=== PATIENT | female | born 1980 | race Caucasian/White ===

== ENCOUNTER 2016-10-03 06:02 | Day surgery (SDC) | payer OTHER ==
[2016-10-03] MEDS ORDERED: ACETAMINOPHEN 1,000 MG/100 ML 100 ML IV ONE (06:26)
[2016-10-03] MEDS ORDERED: ceFAZolin 2 GM/50 ML 50 ML IV ONE (06:26)
[2016-10-03] MEDS ORDERED: CELECOXIB 100 MG CAPSULE PO ONE (06:28)
[2016-10-03] MEDS ORDERED: LACTATED RINGERS 1,000 ML IV ONE ×5 (07:05→09:25)
[2016-10-03] MEDS ORDERED: BUPIVACAINE 0.5% PF 30 ML VIAL INFIL ONE (07:31)
[2016-10-03] MEDS ORDERED: ROCURONIUM 50 MG/5 ML VIAL IVP ONE (07:45)
[2016-10-03] MEDS ORDERED: fentaNYL 100 MCG/2 ML VIAL IVP ONE (07:45)
[2016-10-03] MEDS ORDERED: DEXAMETHASONE 4 MG/ML VIAL IVP ONE (07:45)
[2016-10-03] MEDS ORDERED: GLYCOPYRROLATE 1 MG/5 ML VIAL IVP ONE (07:45)
[2016-10-03] MEDS ORDERED: MIDAZOLAM 2 MG/2 ML VIAL IVP ONE (07:45)
[2016-10-03] MEDS ORDERED: LIDOCAINE-PF 2% 10 ML AMP SUBQ ONE (07:45)
[2016-10-03] MEDS ORDERED: ACETAMINOPHEN 1,000 MG/100 ML VIAL IV ONE (07:45)
[2016-10-03] MEDS ORDERED: SUCCINYLCHOLINE 200 MG/10 ML VIAL IVP ONE (07:45)
[2016-10-03] MEDS ORDERED: PROPOFOL 200 MG/20 ML VIAL IVP ONE (07:45)
[2016-10-03] MEDS: HYDROmorphone 1 MG/ML SYRINGE ONE ×4 (10:20→10:45)
[2016-10-03] MEDS ORDERED: HYDROcod/ACETAM 5/325 MG TABLET ONE (10:53)
== END 2016-10-03 06:03 | disposition home or self-care (01) ==
PROC: 0MQQ0ZZ Repair Right Ankle Bursa and Ligament, Open Approach (ICD-10-PCS; 2016-10-03)
PROC: 0LQS0ZZ Repair Right Ankle Tendon, Open Approach (ICD-10-PCS; principal; 2016-10-03 07:30)
DX: S96.811A Strain of other specified muscles and tendons at ankle and foot level, right foot, initial encounter (principal); M25.371 Other instability, right ankle; E89.0 Postprocedural hypothyroidism; F18.20 Inhalant dependence, uncomplicated; Z85.850 Personal history of malignant neoplasm of thyroid
CPT/HCPCS: 20999; 27696; 81025; A9270; J0131; J0690; J1170; J7120

== ENCOUNTER 2018-06-15 11:41 | Outpatient (CLI) | payer OTHER ==
[2018-06-15 12:56] LABS: BASOPHILS # (AUTO) 0.1 10^3/uL (0.0-0.1); BASOPHILS % (AUTO) 1.2 %; EOSINOPHILS # (AUTO) 0.1 10^3/uL (0.0-0.7); EOSINOPHILS % (AUTO) 2.3 %; HGB - HEMOGLOBIN 14.3 g/dL (12.0-16.0); LYMPHOCYTES # (AUTO) 1.3 10^3/uL (1.5-3.5); LYMPHOCYTES % (AUTO) 27.8 %; MEAN CORPUSCULAR HEMOGLOBIN 32.3 pg (27.0-31.0); MEAN CORPUSCULAR HGB CONC 35.8 g/dL (32.0-36.0); MEAN CORPUSCULAR VOLUME 90.3 fL (81.0-99.0); MEAN PLATELET VOLUME 7.7 fL (7.9-10.8); MONOCYTES # (AUTO) 0.4 10^3/uL (0.0-1.0); MONOCYTES % (AUTO) 8.6 %; NEUTROPHILS # (AUTO) 2.8 10^3/uL (1.5-6.6); NEUTROPHILS % (AUTO) 60.1 %; PLT - PLATELET COUNT 276 10^3/uL (130-450); RED BLOOD COUNT 4.42 10^6/uL (4.20-5.40); RED CELL DISTRIBUTION WIDTH 13.2 % (12.0-15.0); WHITE BLOOD COUNT 4.7 x10^3/uL (4.8-10.8)
[2018-06-15 13:02] LABS: ALBUMIN/GLOBULIN RATIO 1.4 (1.0-2.2); BILIRUBIN,TOTAL 0.4 mg/dL (0.2-1.0); CALCIUM 8.8 mg/dL (8.5-10.3); CREATININE 0.6 mg/dL (0.4-1.0); TOTAL PROTEIN 6.9 g/dL (6.7-8.2)
== END 2018-06-15 11:42 | disposition home or self-care (01) ==
LOC: LAB 11:41
PROVIDERS: ATTEND Internal Medicine Gastroenterology
DX: M62.81 Muscle weakness (generalized) (principal); F32.9 Major depressive disorder, single episode, unspecified; R53.82 Chronic fatigue, unspecified; Z85.850 Personal history of malignant neoplasm of thyroid; M79.7 Fibromyalgia
CPT/HCPCS: 36415; 80053; 85025

== ENCOUNTER 2018-06-21 07:44 | Day surgery (SDC) | payer OTHER ==
[2018-06-21] MEDS ORDERED: ceFAZolin 2 GM/50 ML 2 GM/50 ML BAG IV ONE (07:56)
[2018-06-21] MEDS ORDERED: LACTATED RINGERS 1,000 ML IV ONE ×2 (08:29→10:00)
--- NOTE | 2018-06-21 08:42 | ANESTHESIA ---
Pre-Anesthesia VS, & Labs - Diagnosis progressive muscle weakness - Procedure open muscle biopsy left thigh Vital Signs: Temp Pulse Resp BP Pulse Ox 36.6 C 79 16 135/85 H 99 06/21/18 08:07 06/21/18 08:07 06/21/18 08:07 06/21/18 08:07 06/21/18 08:07 Height 5 ft 9 in Weight (kg) 119 kg - NPO >8 hours - Is Patient ?: Waiver signed Home Medications and Allergies Home Medications: Ambulatory Orders Cyclobenzaprine [Flexeril] 10 mg PO DAILY 06/21/18 Magnesium Oxide [Magnesium] 400 mg PO BID 06/21/18 Fluticasone [Flonase] 1 sprays ABHIJEET DAILY PRN 04/19/15 Levothyroxine [Synthroid] 175 mcg PO QDAC 04/19/15 Loratadine [Claritin] 10 mg PO QPM PRN 04/19/15 Pregabalin [Lyrica] 100 mg PO BID 04/19/15 Cholecalciferol (Vitamin D3) [Vitamin D3] 10,000 unit PO DAILY 09/09/16 Sertraline [Zoloft] 50 mg PO DAILY 09/09/16 Cyclobenzaprine [Flexeril] 10 mg PO DAILY 06/21/18 Magnesium Oxide [Magnesium] 400 mg PO BID 06/21/18 Allergies/Adverse Reactions: Allergies Allergy/AdvReac Type Severity Reaction Status Date / Time No Known Drug Allergies Allergy Verified 06/21/18 08:26 Anes History & Medical History - Anesthetic History Anesthesia Complications: reports: No previous complications - Medical History Cardiovascular: reports: None, Other (chest pain workups negative per patient, told it was anxiety) Pulmonary: reports: None Gastrointestinal: reports: None Urinary: reports: None Musculoskeletal: reports: Fibromyalgia, Other (myalgia) Endocrine/Autoimmune: reports: None Skin: reports: None Smoking Status: Never smoker - Surgical History Eyes Ears Nose Throat (EENT): Tonsil/Adenoidectomy, Other (total thyroidectomy) Orthopedic: Other (ankle surgery, hand surgery) Exam General: Alert Dental: WNL Mouth Opening: Greater than 4 Fingerbreadths Neck Mobility: Normal Mallampati classification: II Thyromental Distance: greater than 6 cm Respiratory: Lungs clear Cardiovascular: Regular rate Neurological: Normal gait Mental/Cognitive Status: Alert/Oriented X3 Plan Anesthesia Type: MAC Consent for Procedure(s) Verified and Reviewed: Yes Code Status: Attempt Resuscitation ASA classification: 2-Mild systemic disease Is this case an emergency?: No
[2018-06-21] MEDS ORDERED: BUPIVACAINE 0.5% PF 30 ML VIAL ONE (09:37)
[2018-06-21] MEDS ORDERED: LIDOCAINE 1%-EPI 1:100000 30 ML MDV ONE ×2 (09:38→09:47)
[2018-06-21] MEDS ORDERED: KETAMINE 500 MG/10 ML VIAL IVP ONE (09:45)
[2018-06-21] MEDS ORDERED: PROPOFOL 200 MG/20 ML VIAL IVP ONE (09:45)
[2018-06-21] MEDS ORDERED: GLYCOPYRROLATE 1 MG/5 ML VIAL IVP ONE (09:45)
[2018-06-21] MEDS ORDERED: MIDAZOLAM 2 MG/2 ML VIAL IVP ONE (09:45)
[2018-06-21] MEDS ORDERED: BUPIVACAINE 0.5% PF 30 ML VIAL INFIL ONE (09:47)
[2018-06-21] MEDS ORDERED: LIDOCAINE MPF 1%-EPI 1:200000 10 ML VIAL IJ ONE (09:47)
[2018-06-21] MEDS ORDERED: oxyCODONE 5 MG TABLET PO PRN (10:22)
[2018-06-21] MEDS ORDERED: ONDANSETRON 4 MG/2 ML VIAL IVP PRN (10:22)
[2018-06-21 10:49] VITALS: BP 139/72
--- NOTE | 2018-06-21 11:27 | OPERATIVE REPORT ---
DATE OF SERVICE: 06/21/2018 Physician: Cas Yeh MD PREOPERATIVE DIAGNOSIS: Progressive muscle weakness. POSTOPERATIVE DIAGNOSIS: Progressive muscle weakness. PROCEDURE PERFORMED: Open biopsy of left quadriceps muscle. ANESTHESIA: Local plus monitored anesthesia care by Casey Goff CRNA. SURGEON: Cas Yeh MD. ESTIMATED BLOOD LOSS: Minimal. COMPLICATIONS: None. DRAINS: None. FINDINGS: A strip of quadriceps muscle measuring 3 cm in length x 0.5 cm in width and depth was exci sed and sent for pathologic evaluation. The muscle grossly had a normal appearance. INDICATIONS FOR PROCEDURE: Amadou Garrett is a 38-year-old woman with a history of progressive muscle weakness. Extensive evaluation by multiple specialists has been unsuccessful in identifying a defin itive diagnosis, and she was advised to undergo an open muscle biopsy for further evaluation. TECHNIQUE: After informed consent and preoperative preparation, included administration of 2 grams o f cefazolin intravenously within an hour of the incision. She was taken to the operating room, where she was placed in supine position and sedated and monitored. Her left anterior thigh was prepped wi th iodoform solution and a field block was instituted, using a 50:50 combination of 1% lidocaine with epinephrine and 0.5% Marcaine plain; a total of 20 mL of the mixture was used. Her left thigh was t hen prepared with ChloraPrep solution and draped in the usual sterile fashion. A longitudinal incisi on, approximately 5 cm in length, was made over the mid anterior quadriceps muscle and carried down t hrough the subcutaneous tissues, until the investing fascia was identified and was incised, also long itudinally, exposing the quadriceps muscle. Using Metzenbaum scissors, a section of muscle was excis ed in it that measured, in an noncontracted state, 4 cm in length x 1 cm in width and depth. The tis damian was placed in a saline-dampened sponge and then in a sterile specimen container, and [facility] was notified for immediate pickup. Hemostasis was achieved with electrocautery, following wh ich wound closure was accomplished in layers, using continuous 2-0 Vicryl to reapproximate the deep i nvesting fascia, followed by continuous 3-0 Vicryl for Kaylin's fascia, followed by 4-0 Monocryl subc uticular skin closure and Dermabond. An Mitchel bandage was applied. The procedure was terminated, and the patient was transferred out of the operating room in satisfactory condition. Platelet counts cor rect x2, and no drains were used. TD: 06/21/2018 10:53
== END 2018-06-21 07:45 | disposition home or self-care (01) ==
LOC: SDS 07:44
PROVIDERS: ATTEND Internal Medicine Gastroenterology
PROC: 0KBR0ZX Excision of Left Upper Leg Muscle, Open Approach, Diagnostic (ICD-10-PCS; principal; 2018-06-21 09:15)
DX: M62.81 Muscle weakness (generalized) (principal); M62.552 Muscle wasting and atrophy, not elsewhere classified, left thigh; R25.1 Tremor, unspecified; M79.7 Fibromyalgia; R53.82 Chronic fatigue, unspecified; I10 Essential (primary) hypertension; E89.0 Postprocedural hypothyroidism; E66.9 Obesity, unspecified; Z85.850 Personal history of malignant neoplasm of thyroid; Z87.01 Personal history of pneumonia (recurrent); Z91.81 History of falling; Z68.38 Body mass index [BMI] 38.0-38.9, adult; Z87.891 Personal history of nicotine dependence
CPT/HCPCS: 20205; J0690; J3490; J7120

== ENCOUNTER 2018-10-14 08:51 | Outpatient (CLI) | payer OTHER ==
--- NOTE | 2018-10-14 15:06 | Nuclear Medicine Report ---
Reason: EARLY SATIETY, NAUSEA VOMITING Procedure Date: 10/14/2018 Accession Number: [id number] / [id number] Procedure: NM - Gastric Empty Small Bowel CPT Code: FULL RESULT: EXAM: GASTRIC EMPTYING STUDY EXAM DATE: 10/14/2018 02:44 PM. CLINICAL HISTORY: EARLY SATIETY, NAUSEA VOMITING. COMPARISON: None. TECHNIQUE: A standard meal was radiolabeled with 1.1 mCi Tc-99m sulfur colloid according to protocol. Following the p.o. administration of this meal, the patient underwent multiple static images over the abdomen from the anterior and posterior projections, at approximately 0, 1, 2, 3, and 4 hours following the ingestion of the meal. Region of interest analysis was employed, and percent emptied/percent remaining of the meal was calculated using both the geometric mean and decay corrections. FINDINGS: Calculations demonstrate: TIME (hours) Percent remaining. Normal values for percent remaining. 1 hour: 20.5% (30-90%) 2 hours: 12.3% (0-60%) 3 hours: 6.3% (30%) 4 hours: 1.2% (0-10%) IMPRESSION: Rapid gastric emptying. RADIA
== END 2018-10-14 08:52 | disposition home or self-care (01) ==
LOC: DI 08:51
PROVIDERS: ATTEND Internal Medicine
DX: R68.81 Early satiety (principal); R11.2 Nausea with vomiting, unspecified
CPT/HCPCS: 78265

== ENCOUNTER 2020-06-24 22:18 | Emergency (ER) | payer OTHER ==
[2020-06-24] MEDS ORDERED: SODIUM CHLORIDE 0.9% 1,000 ML IV STA (23:17)
[2020-06-24 23:36] LABS: BILIRUBIN,URINE NEGATIVE (NEGATIVE); GLUCOSE, URINE (UA) NEGATIVE (NEGATIVE); KETONES,URINE (UA) TRACE mg/dL (NEGATIVE); LEUKOCYTE ESTERASE, URINE NEGATIVE (NEGATIVE); NITRITE,URINE NEGATIVE (NEGATIVE); OCCULT BLOOD,URINE MODERATE (NEGATIVE); PH,URINE 6.5 PH (5.0-7.5); PROTEIN,URINE NEGATIVE (NEGATIVE); UROBILINOGEN,URINE 0.2 (NORMAL) E.U./dL (NORMAL)
[2020-06-24 23:41] LABS: CLARITY,URINE CLEAR (CLEAR)
[2020-06-24 23:49] LABS: BACTERIA,URINE Rare /HPF (None Seen); RBC,URINE 0-5 /HPF (0-5); SQUAMOUS EPITHELIAL CELL,UR FEW Squamous (<= Few)
[2020-06-24 23:52] LABS: BASOPHILS # (AUTO) 0.1 10^3/uL (0.0-0.1); BASOPHILS % (AUTO) 1.1 %; EOSINOPHILS # (AUTO) 0.1 10^3/uL (0.0-0.7); EOSINOPHILS % (AUTO) 1.6 %; HGB - HEMOGLOBIN 13.1 g/dL (12.0-16.0); LYMPHOCYTES # (AUTO) 2.1 10^3/uL (1.5-3.5); LYMPHOCYTES % (AUTO) 27.9 %; MEAN CORPUSCULAR HEMOGLOBIN 31.6 pg (27.0-31.0); MEAN CORPUSCULAR HGB CONC 33.7 g/dL (32.0-36.0); MEAN CORPUSCULAR VOLUME 93.7 fL (81.0-99.0); MEAN PLATELET VOLUME 9.6 fL (7.9-10.8); MONOCYTES # (AUTO) 0.7 10^3/uL (0.0-1.0); MONOCYTES % (AUTO) 9.3 %; NEUTROPHILS # (AUTO) 4.4 10^3/uL (1.5-6.6); NEUTROPHILS % (AUTO) 59.7 %; PLT - PLATELET COUNT 335 10^3/uL (130-450); RED BLOOD COUNT 4.15 10^6/uL (4.20-5.40); RED CELL DISTRIBUTION WIDTH 12.6 % (12.0-15.0); WHITE BLOOD COUNT 7.4 x10^3/uL (4.8-10.8)
[2020-06-24] MEDS ORDERED: KETOROLAC 30 MG/ML VIAL IVP STA (23:58)
[2020-06-25 00:02] LABS: ALBUMIN 4.3 g/dL (3.2-5.5); ALBUMIN/GLOBULIN RATIO 1.5 (1.0-2.2); BILIRUBIN,TOTAL 0.4 mg/dL (0.2-1.0); CALCIUM 8.7 mg/dL (8.5-10.3); CREATININE 0.8 mg/dL (0.4-1.0); TOTAL PROTEIN 7.2 g/dL (6.7-8.2)
--- NOTE | 2020-06-25 00:46 | ED Physician Documentation ---
PD HPI HEADACHE - Stated complaint Stated Complaint: HEAD ACHE - Chief complaint Chief Complaint: Neuro - History obtained from History obtained from: Patient - History of Present Illness Timing - onset: How many days ago (3) Timing - onset during: Rest Timing - duration: Days (3) Timing - details: Gradual onset, Still present Location: Back Quality: Throbbing, Aching Associated symptoms: Stiff neck, Nausea. No: Fever, Vomiting Improved by: Rest, Dark room, Quiet, Meds Worsened by: Light, Noise, Moving Contributing factors: No: Anticoagulated Similar symptoms before: Diagnosis (viral meningitis) Recently seen: Admitted - Additional information Additional information: 40 y/o female with a recent hospitalization for aseptic meningitis was discharged with HSV pending and 7 days of valacyclovir. Her HSV was negative but her [place] encephalitis virus IGG was +. She has been diagnosed with an arbovirus infection. She had about a week of being symptom free and has again developed a headache over the past 3 days. She has nausea but has not vomited. She has not been able to control the pain with ibuprofen and tylenol and has come to the hospital [facility] for treatment. Review of Systems Constitutional: reports: Fatigue. denies: Fever, Chills Eyes: reports: Photophobia. denies: Decreased vision Ears: denies: Ear pain Nose: denies: Rhinorrhea / runny nose, Congestion Throat: denies: Sore throat Cardiac: denies: Chest pain / pressure, Palpitations Respiratory: denies: Dyspnea, Cough GI: reports: Nausea. denies: Abdominal Pain, Vomiting : denies: Dysuria, Frequency PD PAST MEDICAL HISTORY - Past Medical History Past Medical History: Yes Cardiovascular: Hypertension, Other Respiratory: None Endocrine/Autoimmune: None GI: None : None HEENT: Chronic vision loss Psych: None Musculoskeletal: Fibromyalgia, Other Derm: None - Past Surgical History Past Surgical History: Yes Ortho: Other HEENT: Tonsil/Adenoidectomy, Other - Present Medications Home Medications: Ambulatory Orders Medication Instructions Recorded Confirmed Fluticasone [Flonase] 1 sprays ABHIJEET DAILY PRN 04/19/15 06/21/18 Levothyroxine [Synthroid] 175 mcg PO QDAC 04/19/15 06/21/18 Loratadine [Claritin] 10 mg PO QPM PRN 04/19/15 06/21/18 Cholecalciferol (Vitamin D3) 10,000 unit PO DAILY 09/09/16 06/21/18 [Vitamin D3] Sertraline [Zoloft] 50 mg PO DAILY 09/09/16 06/21/18 Cyclobenzaprine [Flexeril] 10 mg PO DAILY 06/21/18 06/21/18 Magnesium Oxide [Magnesium] 400 mg PO BID 06/21/18 06/21/18 ALPRAZolam [Alprazolam] 06/24/20 Hydrocodone/Acetaminophen 06/24/20 [Hydrocodone-Acetamin 5-325 mg] Lisinopril [Zestril] 06/24/20 Metoprolol Succinate 06/24/20 - Allergies Allergies/Adverse Reactions: Allergies Allergy/AdvReac Type Severity Reaction Status Date / Time No Known Drug Allergies Allergy Verified 06/24/20 22:22 - Social History Does the pt smoke?: No Smoking Status: Never smoker Does the pt drink ETOH?: Yes ETOH Use: Liquor Does the pt have substance abuse?: No - Immunizations Immunizations are current?: Yes PD ED PE NORMAL - Vitals Vital signs reviewed: Yes (hypetensive ) - General General: Alert and oriented X 3, Well developed/nourished, Other (40 y/o female ) - HEENT HEENT: Atraumatic, PERRL, EOMI, Other (left TM has distorted architecture with mild inflamation (ruptured 2 years ago)) - Neck Neck: Supple, no meningeal sign, No bony TTP, No JVD - Cardiac Cardiac: RRR, No murmur - Respiratory Respiratory: No respiratory distress, Clear bilaterally - Abdomen Abdomen: Soft, Non tender - Back Back: No CVA TTP, No spinal TTP - Derm Derm: Normal color, Warm and dry, No rash - Extremities Extremities: No deformity, No edema - Neuro Neuro: Alert and oriented X 3, chassis driver 2-12 intact, No motor deficit, No sensory deficit, Normal speech Eye Opening: Spontaneous Motor: Obeys Commands Verbal: Oriented GCS Score: 15 - Psych Psych: Normal mood, Normal affect Results - Vitals Vitals: Vital Signs - 24 hr 06/24/20 06/25/20 06/25/20 22:22 00:27 02:00 Temperature 36.5 C 36.8 C 36.8 C Heart Rate 84 67 65 Respiratory 16 14 16 Rate Blood Pressure 150/100 H 122/74 105/73 O2 Saturation 98 98 97 Oxygen O2 Source Room air - Labs Labs: Laboratory Tests 06/24/20 06/24/20 06/24/20 23:20 23:30 23:30 WBC 7.4 RBC 4.15 L Hgb 13.1 Hct 38.9 MCV 93.7 MCH 31.6 H MCHC 33.7 RDW 12.6 Plt Count 335 MPV 9.6 Neut # (Auto) 4.4 Lymph # (Auto) 2.1 [place] # (Auto) 0.7 Eos # (Auto) 0.1 Baso # (Auto) 0.1 Absolute Nucleated RBC 0.00 Nucleated RBC % 0.0 Sodium 139 Potassium 3.9 Chloride 107 Carbon Dioxide 23 Anion Gap 9.0 BUN 14 Creatinine 0.8 Estimated GFR (MDRD) 79 L Glucose 103 H Lactic Acid Calcium 8.7 Total Bilirubin 0.4 AST 19 ALT 19 Alkaline Phosphatase 53 Total Protein 7.2 Albumin 4.3 Globulin 2.9 Albumin/Globulin Ratio 1.5 Lipase 42 Urine Color YELLOW Urine Clarity CLEAR Urine pH 6.5 Ur Specific [place] 1.020 Urine Protein NEGATIVE Urine Glucose (UA) NEGATIVE Urine Ketones TRACE Urine Occult Blood MODERATE H Urine Nitrite NEGATIVE Urine Bilirubin NEGATIVE Urine Urobilinogen 0.2 (NORMAL) Ur Leukocyte Esterase NEGATIVE Urine RBC 0-5 Urine WBC 0-3 Ur Squamous Epith Cells FEW Squamous Urine Bacteria Rare Ur Microscopic Review INDICATED Urine Culture Comments NOT INDICATED 06/24/20 23:30 WBC RBC Hgb Hct MCV MCH MCHC RDW Plt Count MPV Neut # (Auto) Lymph # (Auto) [place] # (Auto) Eos # (Auto) Baso # (Auto) Absolute Nucleated RBC Nucleated RBC % Sodium Potassium Chloride Carbon Dioxide Anion Gap BUN Creatinine Estimated GFR (MDRD) Glucose Lactic Acid 1.2 Calcium Total Bilirubin AST ALT Alkaline Phosphatase Total Protein Albumin Globulin Albumin/Globulin Ratio Lipase Urine Color Urine Clarity Urine pH Ur Specific [place] Urine Protein Urine Glucose (UA) Urine Ketones Urine Occult Blood Urine Nitrite Urine Bilirubin Urine Urobilinogen Ur Leukocyte Esterase Urine RBC Urine WBC Ur Squamous Epith Cells Urine Bacteria Ur Microscopic Review Urine Culture Comments Procedures - IVC sono (time) 2310 Bedside IVC sono: IVC measures (cm) (1.01), Dehydration (est 1-2 liter deficit) PD MEDICAL DECISION MAKING - ED course Complexity details: reviewed results, re-evaluated patient, considered differential, d/w patient ED course: 40 y/o female with recent admission to [facility] after LP done here demonstrated meningitis was treated for viral meningitis with valacyclovir and has a negative HSV. She was positive for an arborvirus [place] encephalitis virus and treatment for this is supportive. She has a headache today and is dehydrated. She is administered IV saline and toradal without improvement and is subsequently treated with compazine, benadrly and decadron. She has improvement to a smile on the face and this is considered supportive care. I have asked the patient to follow up with the infectious disease specialist for any more specific treatment than that rendered here this morning. Departure - Departure Disposition: 01 Home, Self Care Clinical Impression: Headache due to viral infection Condition: Stable Instructions: ED Meningitis Viral Follow-Up: GRAYSON CARVALHO DO [Primary Care Provider] -
[2020-06-25] MEDS ORDERED: DEXAMETHASONE 10 MG/ML VIAL IVP STA (00:56)
[2020-06-25] MEDS ORDERED: PROCHLORPERAZINE 10 MG/2 ML VIAL IVP STA (00:56)
[2020-06-25] MEDS ORDERED: diphenhydrAMINE INJ 50 MG/ML VIAL IVP STA (00:57)
[2020-06-25 02:48] VITALS: BP 100/72
== END 2020-06-25 02:48 | disposition home or self-care (01) ==
LOC: ED 22:18
DX: A85 Other viral encephalitis, not elsewhere classified (principal); R51.9 Headache, unspecified; E86.0 Dehydration; I10 Essential (primary) hypertension
CPT/HCPCS: 36415; 80053; 81001; 83605; 83690; 85025; 96361; 96374; 96375; 99282; 99283; J1200; 81003; 87086

== ENCOUNTER 2022-04-07 09:17 | Outpatient (CLI) | payer MEDICARE, OTHER ==
--- NOTE | 2022-04-07 10:52 | MRI Report ---
PROCEDURE: Brain W/O INDICATIONS: TREMOR TECHNIQUE: Noncontrast axial T1 spin echo, axial T2 fast spin echo, sagittal and axial FLAIR, coronal T2 fast sp in echo, axial gradient echo, axial diffusion and ADC through the brain. COMPARISON: Correlation is made with prior head CT, 06/04/2020 FINDINGS: Image quality: Excellent. CSF Spaces: Basal cisterns are patent. No extra-axial fluid collections. Ventricles are normal in size and shape. Brain: No intracranial masses or hemorrhage. Bosch/white matter interface is normal. Brainstem appe ars normal. Diffusion-weighted images demonstrate no acute ischemic insult. No chronic ischemic ins ults. Normal intravascular flow voids are present. Skull and face: Calvarium has normal marrow signal. Orbits appear normal. Sinuses: Sinuses and mastoids are clear. IMPRESSION: Normal noncontrast brain MRI, without a cause of tremor identified. Reviewed by: Robby Millard MD on 04/07/2022 10:50 AM PDT Approved by: Robby Millard MD on 04/07/2022 10:50 AM PDT Station ID: [id number]
== END 2022-04-07 09:18 | disposition home or self-care (01) ==
LOC: DI 09:17
PROVIDERS: ATTEND Family Medicine
DX: R25.1 Tremor, unspecified (principal); R53.1 Weakness; M62.89 Other specified disorders of muscle; R51.9 Headache, unspecified; R42 Dizziness and giddiness

== ENCOUNTER → 2022-08-18 | Outpatient (CLI) | payer MEDICARE, OTHER | END | disposition EMS.NT | LOC: EMS 15:33 | DX: R42 Dizziness and giddiness (principal); K59.00 Constipation, unspecified ==

== ENCOUNTER → 2022-08-20 | Outpatient (CLI) | payer MEDICARE, OTHER | END | disposition short-term general hospital (02) | LOC: EMS 14:31 | DX: R51.9 Headache, unspecified (principal); R11.0 Nausea; H53.8 Other visual disturbances | CPT/HCPCS: A0425; A0427; A0888 ==

== ENCOUNTER 2023-04-24 19:20 | Emergency (ER) | payer MEDICARE, OTHER ==
[2023-04-24] MEDS ORDERED: SODIUM CHLORIDE 0.9% 1,000 ML IV STA (19:51)
[2023-04-24] MEDS ORDERED: diphenhydrAMINE INJ 50 MG/ML VIAL IVP STA (19:52)
[2023-04-24] MEDS ORDERED: PROCHLORPERAZINE 10 MG/2 ML VIAL IVP STA (19:52)
[2023-04-24] MEDS ORDERED: HYDROmorphone 1 MG/ML CARPUJECT IVP STA (19:54)
--- NOTE | 2023-04-24 19:59 | ED Physician Documentation ---
History of Present Illness - Stated complaint Stated Complaint: GONCALVES,NECK PX - Chief complaint Chief Complaint: Neuro - Additonal information Additional information: 43-year-old female presents to the emergency department for evaluation of a he jam. She states that she has been having daily headaches since early December. They are constant and unabating. She initially was being seen through her primary care doctor where they trialed the triptans, ergot medications as well as Toradol. She has never found relief of the headache by any means. Reportedly had a negative MRI in January at [facility]. Subsequently she has been followed by a neurologist who trialed her on a Dosepak of methylprednisolone in early April. States that the headache improved for only 1 day. Subsequently on 17 April her neurologist attempted an occipital nerve block which patient reports has not helped. In the room she is crying and tearful. States she does not know how much longer she can tolerate having headaches. She did have an aseptic meningitis in [place] pt[place]. Patient is concerned that the persistence of these headaches is reminiscent of that episode. She has had no fevers. She has no nuchal rigidity. Review of Systems Constitutional: denies: Fever Eyes: reports: Reviewed and negative Ears: reports: Reviewed and negative Nose: reports: Reviewed and negative Cardiac: reports: Reviewed and negative Respiratory: reports: Reviewed and negative GI: reports: Reviewed and negative : reports: Reviewed and negative Skin: reports: Reviewed and negative Musculoskeletal: reports: Neck pain Neurologic: reports: Focal weakness, Numbness, Headache. denies: Syncope, Seizure, Confused, Head injury Psychiatric: reports: Reviewed and negative Endocrine: reports: Reviewed and negative PD PAST MEDICAL HISTORY - Past Medical History Cardiovascular: Hypertension, Other Respiratory: None Endocrine/Autoimmune: None GI: None : None HEENT: Chronic vision loss Psych: None Musculoskeletal: Fibromyalgia, Other Derm: None - Past Surgical History Past Surgical History: Yes Ortho: Other HEENT: Tonsil/Adenoidectomy, Other - Present Medications Home Medications: Ambulatory Orders Medication Instructions Recorded Confirmed Fluticasone [Flonase] 1 sprays ABHIJEET DAILY PRN 04/19/15 06/21/18 Levothyroxine [Synthroid] 175 mcg PO QDAC 04/19/15 06/21/18 Loratadine [Claritin] 10 mg PO QPM PRN 04/19/15 06/21/18 Cholecalciferol (Vitamin D3) 10,000 unit PO DAILY 09/09/16 06/21/18 [Vitamin D3] Sertraline [Zoloft] 50 mg PO DAILY 09/09/16 06/21/18 Cyclobenzaprine [Flexeril] 10 mg PO DAILY 06/21/18 06/21/18 Magnesium Oxide [Magnesium] 400 mg PO BID 06/21/18 06/21/18 ALPRAZolam [Alprazolam] 06/24/20 Hydrocodone/Acetaminophen 06/24/20 [Hydrocodone-Acetamin 5-325 mg] Lisinopril [Zestril] 06/24/20 Metoprolol Succinate 06/24/20 - Allergies Allergies/Adverse Reactions: Allergies Allergy/AdvReac Type Severity Reaction Status Date / Time No Known Drug Allergies Allergy Verified 04/24/23 19:22 - Social History Does the pt smoke?: No Smoking Status: Never smoker Does the pt drink ETOH?: Yes Does the pt have substance abuse?: No - Immunizations Immunizations are current?: Yes PD ED PE NORMAL - General General: Alert and oriented X 3, Well developed/nourished. No: No acute distress (Crying ) - HEENT HEENT: Atraumatic, EOMI, Ears normal, Moist mucous membranes, Pharynx benign - Neck Neck: Supple, no meningeal sign - Cardiac Cardiac: RRR, No murmur - Respiratory Respiratory: No respiratory distress, Clear bilaterally - Abdomen Abdomen: Normal bowel sounds, Soft - Back Back: No CVA TTP - Derm Derm: Normal color, Warm and dry, No rash - Extremities Extremities: No deformity - Neuro Neuro: Alert and oriented X 3, title one reading teacher 2-12 intact Eye Opening: Spontaneous Motor: Obeys Commands Verbal: Oriented GCS Score: 15 Results - Vitals Vitals: Vital Signs - 24 hr 04/24/23 04/24/23 04/24/23 19:22 21:26 22:37 Temperature 36.5 C Heart Rate 100 89 76 Respiratory 18 18 18 Rate Blood Pressure 150/90 H 126/76 123/76 O2 Saturation 97 96 96 Oxygen O2 Source Room air - Labs Labs: Laboratory Tests 04/24/23 04/24/23 04/24/23 20:14 20:14 20:14 WBC 7.8 RBC 4.36 Hgb 13.8 Hct 40.0 MCV 91.7 MCH 31.7 H MCHC 34.5 RDW 12.7 Plt Count 280 MPV 9.6 Neut # (Auto) 5.3 Lymph # (Auto) 1.7 [place] # (Auto) 0.6 Eos # (Auto) 0.1 Baso # (Auto) 0.1 Absolute Nucleated RBC 0.00 Nucleated RBC % 0.0 PT INR Sodium 137 Potassium 3.6 Chloride 109 Carbon Dioxide 21 Anion Gap 7.0 BUN 13 Creatinine 0.7 Estimated GFR (MDRD) 91 Glucose 106 H Lactic Acid 1.9 Calcium 9.1 Total Bilirubin 0.3 AST 18 ALT 15 Alkaline Phosphatase 47 Total Protein 6.6 Albumin 4.2 Globulin 2.4 Albumin/Globulin Ratio 1.8 Lipase 35 Serum HCG, Qual 04/24/23 04/24/23 20:14 20:14 WBC RBC Hgb Hct MCV MCH MCHC RDW Plt Count MPV Neut # (Auto) Lymph # (Auto) [place] # (Auto) Eos # (Auto) Baso # (Auto) Absolute Nucleated RBC Nucleated RBC % PT 11.8 INR 1.1 Sodium Potassium Chloride Carbon Dioxide Anion Gap BUN Creatinine Estimated GFR (MDRD) Glucose Lactic Acid Calcium Total Bilirubin AST ALT Alkaline Phosphatase Total Protein Albumin Globulin Albumin/Globulin Ratio Lipase Serum HCG, Qual NEGATIVE - Rads (name of study) ct head Relevant Findings:: Final report received (No acute intracranial abnormalities.) PD Medical Decision Making - ED course Complexity details: reviewed results, re-evaluated patient, d/w patient ED course: 43-year-old female presents to the emergency department for evaluation of chronic daily headaches that have been present since early December 2022. Patient does have a history of aseptic meningitis in May 2020. The patient is crying, tearful and frustrated. She states that since December she has been seeing her primary care doctor as well as her neurologist. They have attempted Toradol, ergot's, triptans, occipital nerve blocks, opioids and no medications have been effective at managing her symptoms. Here in the emergency department I did obtain CBC, PT/INR, blood chemistry and a lactic acid. Per my interpretation no acute worrisome abnormalities. There is no leukocytosis elevation of lactate acid or electrolyte abnormality. Patient is not . Given the chronicity of the headaches I did obtain a CT of the head which was unremarkable. Here in the emergency department to help control the headaches I did give her a liter of IV fluids, Compazine, Benadryl and Decadron as well as a single dose of IV Dilaudid. When I reevaluated the patient she appeared more calm and was no longer tearful but stated her head still hurt. I then administered her a single dose of Toradol. Though the patient has a history of aseptic meningitis given the lack of fever and leukocytosis as well as the chronicity of her symptoms is felt extremely unlikely that she has a recurrent meningitis at this stage today. I did consider normal pressure hydrocephalus. Subsequently I spoke on the phone with the patient's neurologist Dr. Alves. He reports to me that he feels the patient has daily chronic migraines. He also feels it is quite unlikely the patient would have a meningitis and given how persistent and longstanding her headaches are. I discussed the option of lumbar puncture for the evaluation of normal pressure hydrocephalus and he did not feel it was warranted or necessary today in the emergency department. I discussed the plan and findings with the patient at the bedside. She is going to continue to follow with her neurologist. She is frustrated. But at the time of this ED exam it does not appear there is any acute emergent concern or clinical finding. She is discharged home in stable condition with usual emergent return precautions discussed for worsening symptoms Departure - Departure Disposition: 01 Home, Self Care Clinical Impression: Chronic daily headache Condition: Stable Record reviewed to determine appropriate education?: Yes Instructions: ED Headache Migraine Comments: Amadou wagner came to the emergency department today for evaluation of your headaches that have been chronic and daily since December. You have been following closely with your primary care doctors as well as a neurologist. Your labs today in the emergency department including your white count were all essentially normal. The CT of your head was also normal. Here in the emergency department we did give you a single dose of Decadron which is an oral steroid. We also gave you Toradol, Compazine, Benadryl and Dilaudid to help control your headache pain. I did speak on the phone with Dr. Alves your neurologist. Given the chronicity of your symptoms, He is not worried about meningitis. He encourages you to continue to call the office to arrange follow-up for a second occipital nerve block. Please return to the emergency department if you develop any slurred speech, develop any fevers, if you have facial droop or focal weakness in your arms or legs Forms: PCP List Discharge Date/Time: 04/24/23 22:37
[2023-04-24 20:29] LABS: BASOPHILS # (AUTO) 0.1 10^3/uL (0.0-0.1); EOSINOPHILS # (AUTO) 0.1 10^3/uL (0.0-0.7); EOSINOPHILS % (AUTO) 1.2 %; HGB - HEMOGLOBIN 13.8 g/dL (12.0-16.0); LYMPHOCYTES # (AUTO) 1.7 10^3/uL (1.5-3.5); MEAN CORPUSCULAR HEMOGLOBIN 31.7 pg (27.0-31.0); MEAN CORPUSCULAR HGB CONC 34.5 g/dL (32.0-36.0); MEAN CORPUSCULAR VOLUME 91.7 fL (81.0-99.0); MEAN PLATELET VOLUME 9.6 fL (7.9-10.8); MONOCYTES # (AUTO) 0.6 10^3/uL (0.0-1.0); MONOCYTES % (AUTO) 8.1 %; NEUTROPHILS # (AUTO) 5.3 10^3/uL (1.5-6.6); NEUTROPHILS % (AUTO) 67.4 %; PLT - PLATELET COUNT 280 10^3/uL (130-450); RED BLOOD COUNT 4.36 10^6/uL (4.20-5.40); RED CELL DISTRIBUTION WIDTH 12.7 % (12.0-15.0); WHITE BLOOD COUNT 7.8 x10^3/uL (4.8-10.8)
[2023-04-24 20:30] LABS: INR 1.1 (0.8-1.2); PT - PROTHROMBIN TIME 11.8 secs (9.9-12.6)
[2023-04-24 20:36] LABS: ALBUMIN 4.2 g/dL (3.2-5.5)
[2023-04-24 20:40] LABS: ALBUMIN/GLOBULIN RATIO 1.8 (1.0-2.2); BILIRUBIN,TOTAL 0.3 mg/dL (0.2-1.0); CALCIUM 9.1 mg/dL (8.5-10.3); CREATININE 0.7 mg/dL (0.6-1.3); POTASSIUM 3.6 mmol/L (3.5-4.5); TOTAL PROTEIN 6.6 g/dL (6.4-8.9)
[2023-04-24 20:45] LABS: HCG,QUALITATIVE BLOOD NEGATIVE
[2023-04-24] MEDS ORDERED: DEXAMETHASONE 10 MG/ML VIAL PO STA (21:07)
[2023-04-24] MEDS ORDERED: CHERRY SYRUP 10 ML UDC PO ONE (21:07)
--- NOTE | 2023-04-24 21:20 | CT Report ---
PROCEDURE: HEAD WO INDICATIONS: headache since december TECHNIQUE: Noncontrast 4.5 mm thick angled axial sections acquired from the foramen magnum to the vertex. For r adiation dose reduction, the following was used: automated exposure control, adjustment of mA and/or kV according to patient size. COMPARISON: 05/27/2020. FINDINGS: Image quality: Excellent. CSF spaces: Basal cisterns are patent. No extra-axial fluid collections. Ventricles are normal in size and shape. Brain: No intracranial hemorrhage, mass, or mass effect. Bosch-white matter interface appears preser yesenia. Skull and face: Calvarium and visualized facial bones are intact, without suspicious lesions. Sinuses: Visualized sinuses and mastoids are clear. IMPRESSION: 1. No acute intracranial abnormality. Reviewed by: Cornelius Laboy MD on 04/24/2023 9:19 PM PDT Approved by: Cornelius Laboy MD on 04/24/2023 9:19 PM PDT Station ID: [id number]
[2023-04-24] MEDS ORDERED: KETOROLAC 30 MG/ML VIAL IVP STA (21:21)
--- OUTSIDE RECORDS SUMMARY | 2023-04-24 21:47 | EXTERNAL MEDICAL SUMMARY RPT | Continuity of Care Document ---
Author Name Unknown Address [address] [place] [address] Phone Organization [place] Address [address] [place] [address] Phone Problems date description facility 2023-01-26 18:[address] [facility] 2023-01-26 18:48 Pain in thoracic spine [facility] 2023-01-26 18:48 Tremor, unspecified [facility] 2023-01-26 18:48 Headache with orthos tatic component, not elsewhere [facility] 2023-01-26 18:48 [facility] 2023-01-26 18:[address] [facility] 2023-01-26 18:52 Pain in thoracic spine [facility] 2023-01-26 18:52 Tremor, unspecified [facility] 2023-01-26 18:52 Headache with orthos tatic component, not elsewhere [facility] 2023-01-26 18:52 [facility] Results/Labs test date facility value unit notes
[2023-04-24 22:01] VITALS: O2SAT 96
[2023-04-24 22:38] VITALS: BP 123/76
== END 2023-04-24 22:37 | disposition home or self-care (01) ==
LOC: ED 19:20
DX: R51.9 Headache, unspecified (principal); Z86.61 Personal history of infections of the central nervous system
CPT/HCPCS: 36415; 70450; 80053; 83605; 83690; 84703; 85025; 85610; 96374; 96375; 99284; 99285; J1170; J1200

== ENCOUNTER 2023-09-06 15:36 | Emergency (ER) | payer MEDICARE, OTHER ==
[2023-09-06] MEDS ORDERED: SODIUM CHLORIDE 0.9% 1,000 ML IV STA (16:01)
[2023-09-06] MEDS ORDERED: HYDROmorphone 1 MG/ML CARPUJECT IVP STA (16:01)
[2023-09-06] MEDS ORDERED: diphenhydrAMINE INJ 50 MG/ML VIAL IVP STA (16:01)
[2023-09-06] MEDS ORDERED: PROCHLORPERAZINE 10 MG/2 ML VIAL IVP STA (16:01)
[2023-09-06] MEDS ORDERED: KETOROLAC 15 MG/ML VIAL IVP STA (16:01)
[2023-09-06] MEDS ORDERED: DEXAMETHASONE 10 MG/ML VIAL IVP STA (16:01)
--- NOTE | 2023-09-06 16:03 | ED Physician Documentation ---
PD HPI HEADACHE - Stated complaint Stated Complaint: GONCALVES - Chief complaint Chief Complaint: Neuro - History obtained from History obtained from: Patient - Additional information Additional information: 43-year-old woman who about 3 years ago had aseptic meningitis. Has had chronic headaches ever since and has had daily headaches since December of this year. She has a neurologist, Dr. Alves in [place]. She is been trialed on Topamax and beta-blockers as well as Imitrex with transient to no relief. On August 11 of this month her neurologist had a spinal tap done because he wanted opening pr essures (which were 15), and subsequently she developed a much more severe headache for the next 10 days. Over the last 2 days she developed some sinus congestion and drainage and tried some Mucinex, after which she developed a more severe burning pain on the top of her head. The headaches are positional and that they are worse after being upright, but it takes about an hour or 2 before the position allergy kicks in. It is not the worst headache of her life, that was when she had meningitis. No sudden onset headaches. No fevers. She has an appointment this coming Thursday for MRI imaging of the head and spine to evaluate for a spinal fluid leak. PD PAST MEDICAL HISTORY - Past Medical History Past Medical History: Yes Cardiovascular: Hypertension, Other Respiratory: None Endocrine/Autoimmune: None GI: None : None HEENT: Chronic vision loss Psych: None Musculoskeletal: Fibromyalgia, Other Derm: None - Past Surgical History Past Surgical History: Yes Ortho: Other HEENT: Tonsil/Adenoidectomy, Other - Present Medications Home Medications: Ambulatory Orders Medication Instructions Recorded Confirmed Fluticasone [Flonase] 1 sprays ABHIJEET DAILY PRN 04/19/15 06/21/18 Levothyroxine [Synthroid] 175 mcg PO QDAC 04/19/15 06/21/18 Loratadine [Claritin] 10 mg PO QPM PRN 04/19/15 06/21/18 Cholecalciferol (Vitamin D3) 10,000 unit PO DAILY 09/09/16 06/21/18 [Vitamin D3] Sertraline [Zoloft] 50 mg PO DAILY 09/09/16 06/21/18 Cyclobenzaprine [Flexeril] 10 mg PO DAILY 06/21/18 06/21/18 Magnesium Oxide [Magnesium] 400 mg PO BID 06/21/18 06/21/18 ALPRAZolam [Alprazolam] 06/24/20 Hydrocodone/Acetaminophen 06/24/20 [Hydrocodone-Acetamin 5-325 mg] Lisinopril [Zestril] 06/24/20 Metoprolol Succinate 06/24/20 - Allergies Allergies/Adverse Reactions: Allergies Allergy/AdvReac Type Severity Reaction Status Date / Time No Known Drug Allergies Allergy Verified 09/06/23 15:39 - Social History Does the pt smoke?: No Smoking Status: Never smoker Does the pt drink ETOH?: Yes Does the pt have substance abuse?: No - Immunizations Immunizations are current?: Yes PD ED PE NORMAL - Vitals Vital signs reviewed: Yes - General General: Alert and oriented X 3, No acute distress - HEENT HEENT: PERRL, EOMI, Pharynx benign - Neck Neck: Supple, no meningeal sign, No bony TTP - Neuro Neuro: Alert and oriented X 3, 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 As such I doubt subarachnoid hemorrhage. There are no infectious symptoms such as fever or stiff neck to make me suspect meningitis. No carbon monoxide exposure by history. She definitely had worsening of her chronic headaches after recent spinal tap and we considered [employer] consult for blood patch but she would like to trial migraine cocktail first. I do not see any indication for repeat CT imaging as nothing in the history or physical would suggest a need for that After the administration of IV hydromorphone, Toradol, Compazine, and Benadryl she was feeling some relief. She certainly was not pain-free but has not been headache free for about 8 months and she was close to her pain baseline. Departure - Departure Disposition: 01 Home, Self Care Clinical Impression: Migraine Qualifiers: Migraine type: unspecified Status migrainosus presence: with status migrainosus Intractability: intractable Qualified Code(s): G43.911 - Migraine, unspecified, intractable, with status migrainosus Condition: Good Record reviewed to determine appropriate education?: Yes Instructions: ED Headache Migraine Comments: Followup with Dr Alves, return if worse. Forms: PCP List
[2023-09-06 17:50] VITALS: BP 132/82; O2SAT 95
== END 2023-09-06 17:20 | disposition home or self-care (01) ==
LOC: ED 15:36
DX: G43.911 Migraine, unspecified, intractable, with status migrainosus (principal); I10 Essential (primary) hypertension
CPT/HCPCS: 96374; 96375; 99283; J1170; J1200